=== PATIENT | male | born 1970 | race Caucasian/White ===

== ENCOUNTER → 2021-11-16 00:18 | Outpatient (CLI) | payer MEDICAID, SELFPAY ==
--- NOTE | 2021-11-16 07:55 | DI.CT_ITS ---
Exam(s) CT SINUS WO EXAM: CT SINUS WO CLINICAL HISTORY: Ongoing sinus pressure and congestion,j34.89,r09.81. Evaluate for sinusitis. TECHNIQUE: Imaging Protocol: Axial computed tomography images with coronal and sagittal reformatted images were created and reviewed. COMPARISON: CT CT FACE WO [id number] from 09/27/2021 from [facility] FINDINGS: AXIAL IMAGES: Frontal sinuses: Small mucous retention cyst left frontal sinus. Significant improvement from prior. Ethmoid air cells: Opacification of the majority of the ethmoid sinuses, similar to prior.. Maxillary sinuses: Large amount of mucus is noted within the left maxillary sinus, similar to prior. Moderate circumferential mucosal thickening of the left maxillary sinus, similar to prior. Sphenoid sinus: Mild mucosal thickening, similar to prior. Ostiomeatal complexes: Occluded bilaterally. Osseous nasal septum: Deviated toward the left. Some mucous retention versus polyps within the nasal cavity. Finding similar to prior. Visualized regional soft tissues: No acute findings. Orbits: Unremarkable. Bones: Unremarkable. Mastoid Air Cells: Normally aerated. Brain unremarkable as visualized. IMPRESSION: Relatively stable chronic pansinusitis with some clearing of the left frontal sinus. RADIATION DOSE DELIVERED: 183.15mGy.cm Total DLP DATA REPOSITORY: All CT scans at this facility are submitted to the National Radiology Data Registry (NRDR) Dose Index Registry (DIR) with the [employer] ([employer]). RADIATION OPTIMIZATION: All CT scans at this facility use at least one of these dose optimization te chniques: automated exposure control; mA and/or kV adjustment per patient size (includes targeted exa ms where dose is matched to clinical indication); or iterative reconstruction.
== END ==
PROVIDERS: PCP Family Medicine; Visit Provider Registered Nurse Maternal Newborn
DX: J34.89 Other specified disorders of nose and nasal sinuses (principal); R09.81 Nasal congestion
CPT/HCPCS: 70486